=== PATIENT | male | born 1955 | race Caucasian/White ===

== ENCOUNTER 2018-03-21 05:16 | Day surgery (SDC) | payer BC ==
[2018-03-21] VITALS (8 sets, daily range): BP systolic 112–129; BP diastolic 65–80; PULSE 65–90; TEMP 97.4–98.1
[~2018-03-21] VITALS: Ht 172.7 cm; Wt 68.4 kg
[2018-03-21] MEDS ORDERED: CENTRUM SILVER1 CTB PO (06:11)
[2018-03-21] MEDS ORDERED: NORCO 325 MG-51 TAB PO (12:46)
== END 2018-03-21 13:30 | disposition home or self-care (01) ==
LOC: SDCO 05:16
DX: K40.90 Unilateral inguinal hernia, without obstruction or gangrene, not specified as recurrent (principal); K41.90 Unilateral femoral hernia, without obstruction or gangrene, not specified as recurrent; Z80.42 Family history of malignant neoplasm of prostate; Z80.8 Family history of malignant neoplasm of other organs or systems
CPT/HCPCS: C1781; J0330; J0690; J1100; J1885; J2405; J2704; J2710; J3010; J7120